=== PATIENT | male | born 1980 | race Caucasian/White ===

== ENCOUNTER 2024-11-30 09:10 | Outpatient (CLI) | payer MEDICARE, MEDICAID ==
--- NOTE | 2024-11-30 10:20 | RADIOLOGY REPORT ---
CLINICAL INDICATION: LEFT SHOULDER JOINT PAIN TECHNIQUE: 2 radiographic views of the left shoulder were obtained. Comparison: None FINDINGS/IMPRESSION: There is no evidence of acute fracture or dislocation. The visualized joint space is well maintained. The alignment is anatomical. There is no radiopaque foreign body.
--- NOTE | 2024-12-01 08:43 | CARDIOLOGY REPORT ---
APPROVED REPORT EXAM: Comprehensive 2D, Doppler, and color-flow Echocardiogram. Patient Location: OUT-PATIENT Heart Rate: 67 bpm Rhythm: SINUS Indications AORTIC VALVE INSUFFICIENCY Repair Service Clerk: none Previous echo: none available 2D Dimensions IVSd 1.3 (0.7-1.1cm) LVDd 4.7 cm PWd 1.2 (0.7-1.1cm) IVSs 1.5 (0.8-1.2cm) LVDs 3.0 (2.5-4.0cm) PWs 1.5 (0.8-1.2cm) LVOT Diameter 2.49 (1.8-2.4cm) LVEF(%) 64.5 (>50%) Ao Asc Diam.3.32 cmFS (%) 35.2 % SV 66.0 ml CO 4.6 L/min M-Mode Dimensions Left Atrium(MM) 2.66 (2.5-4.0cm) Aortic Root 3.52 (2.2-3.7cm) Aortic Cusp Exc 2.43 (1.5-2.0cm) MV EPSS 0.7 (<0.5cm) Aortic Valve AoV Peak Héctor. 151.2 cm/s AoV VTI 28.0 cm AO Peak GR. 9.1 mmHg AO Mean GR. 5 mmHg LVOT VTI 19.97 cm LVOT Peak Héctor. 87.3 cm/s FAROOQ(VTI)/BSA 3.47 cm2/m2 FAROOQ (VTI) 3.47 cm2 AI P 1/2 Time 496 ms Mitral Valve MV E Velocity 57.0 cm/s MV Peak Gr. 2 mmHg MV DECEL TIME 276 ms MV A Velocity 52.9 cm/s MV PHT 56 ms E/A Ratio 1.1 MVA (PHT) 3.93 cm2 MV VMax72.2 cm/s TDI Medial E' P. V 9.63 cm/s E/Medial E' 5.9 Tricuspid Valve TR P. Velocity 257 cm/s TR Peak Gr. 26 mmHg Pulmonary Vein S1 Velocity 68.3 cm/s D2 Velocity 40.4 cm/s PVa Htbzigjq98.7 cm/s PVa [id number] msec LEFT VENTRICLE Normal LV size and function. Mild concentric hypertrophy. Overall LVEF is 60-65%. RIGHT VENTRICLE RV size and function appear grossly normal. ATRIA LA appears mildly dilated. RA size appears normal. AORTIC VALVE Bicuspid aortic valve with two distinct sinuses, probably malformed, appears mildly sclerotic without stenosis. Moderate eccentric, multijet insufficiency visualized at 3 o'clock and 9 o'clock PSAX BASE TTE. MITRAL VALVE Mild MV annular calcification without stenosis. Mild regurgitation. TRICUSPID VALVE TV appears structurally normal with trace regurgitation. PULMONIC VALVE Normal PV without stenosis, physiologic insufficiency. GREAT VESSELS Aortic root is normal in size. Ascending aorta is normal in size. PERICARDIUM Normal pericardium. No effusion. Other Information Study Quality: Adequate Conclusion Overall LVEF is 60-65%. Normal LV size and function. Mild concentric hypertrophy. RV size and function appear grossly normal. Bicuspid aortic valve with two distinct sinuses, probably malformed, appears mildly sclerotic without stenosis. Moderate eccentric, multijet insufficiency visualized at 3 o'clock and 9 o'clock PSAX BASE TTE. Mild MV annular calcification without stenosis. Mild regurgitation. TV appears structurally normal with trace regurgitation. Normal PV without stenosis, physiologic insufficiency. Normal pericardium. No effusion.
== END 2024-11-30 23:59 | disposition home or self-care (01) ==
LOC: CARD DIAG 09:10
PROVIDERS: ATTEND Student in an Organized Health Care Education/Training Program
DX: I08.8 Other rheumatic multiple valve diseases (principal); M25.512 Pain in left shoulder; I35.1 Nonrheumatic aortic (valve) insufficiency; Q23.81 Bicuspid aortic valve
CPT/HCPCS: 73030; 93306